=== PATIENT | female | born 1995 | race Hispanic/Latino ===

== ENCOUNTER → 2024-09-18 | Outpatient (REF) | LOC: M EMP 07:56 | PROVIDERS: ATTEND Family Medicine | DX: Z11.52 Encounter for screening for COVID-19 (principal) ==

== ENCOUNTER → 2024-09-20 | Outpatient (REF) | LOC: M EMP 08:01 | PROVIDERS: ATTEND Family Medicine | DX: Z11.52 Encounter for screening for COVID-19 (principal) ==

== ENCOUNTER 2024-11-30 19:24 | Emergency (ER) | payer SELFPAY ==
[~2024-11-30] VITALS: Ht 170.2 cm; Wt 94.8 kg
[2024-11-30 20:34] LABS: KETONE, URINE AUTO RFX NEGATIVE (NEGATIVE); LEUKOCYTE ESTERASE UR AUTO RFX NEGATIVE (NEGATIVE); MUCUS, URINE RFX MODERATE (NEGATIVE); NITRITE, URINE AUTO RFX NEGATIVE (NEGATIVE); RBC, URINE AUTO RFX 0 /HPF (0-3); SQUAM EPITHELIAL CELL UR AURFX 3 /HPF (0-6); WBC, URINE AUTO RFX 2 /HPF (0-3)
[2024-11-30 20:44] LABS: BASO % 0.6 % (0.0-1.0); EOS # 0.1 10^3/uL (0.0-0.5); EOS % 1.5 % (0.0-3.0); HEMATOCRIT 42.5 % (36.0-47.0); HEMOGLOBIN 14.3 g/dl (12.0-15.5); LYMPH # 2.8 10^3/uL (1.5-5.0); MEAN CORPUSCULAR HEMOGLOBIN 29.6 pg (27.0-33.0); MEAN CORPUSCULAR HGB CONC 33.6 g/dl (32.0-36.5); MONO # 0.7 10^3/uL (0.0-0.8); MONO % 10.5 % (2.0-8.0); NEUTROPHILS % 45.2 % (36.0-66.0); PLATELET COUNT, AUTOMATED 365 10^3/uL (150-450); RED BLOOD COUNT 4.83 10^6/uL (4.00-5.40); WHITE BLOOD COUNT 6.6 10^3/uL (4.0-10.0)
[2024-11-30 21:16] LABS: BLOOD UREA NITROGEN 9 MG/DL (9-23); CALCIUM LEVEL 9.2 MG/DL (8.5-10.1); CARBON DIOXIDE LEVEL 26 MMOL/L (20-31); CHLORIDE LEVEL 109 MMOL/L (98-107); CREATININE FOR GFR 0.58 MG/DL (0.55-1.30); GLOMERULAR FILTRATION RATE > 60.0 (>60); GLUCOSE, FASTING 88 MG/DL (60-100); SODIUM LEVEL 140 MMOL/L (136-145)
[2024-11-30 21:30] LABS: HCG, SERUM QUANTITATIVE 1904.2 MIU/ML (<4.2)
[2024-11-30 23:46] VITALS: BP 137/88; TEMP 98.8; O2SAT 99
[2024-12-01] MEDS ORDERED: METR-265 PO (00:48)
== END 2024-12-01 01:00 | disposition home or self-care (01) ==
LOC: M ED 19:24
DX: O20.0 Threatened abortion (principal); O23.591 Infection of other part of genital tract in pregnancy, first trimester; Z79.899 Other long term (current) drug therapy; Z3A.01 Less than 8 weeks gestation of pregnancy

== ENCOUNTER → 2025-01-29 | Outpatient (CLI) | payer MEDICAID, OTHER ==
[~2025-01-29] MED LIST: METR-265 PO
[2025-01-29 19:52] LABS: HEMOGLOBIN 13.6 g/dl (12.0-15.5); MEAN CORPUSCULAR HEMOGLOBIN 30.2 pg (27.0-33.0); MEAN CORPUSCULAR HGB CONC 33.2 g/dl (32.0-36.5); MEAN CORPUSCULAR VOLUME 90.9 fl (80.0-96.0); PLATELET COUNT, AUTOMATED 316 10^3/uL (150-450); RED BLOOD COUNT 4.51 10^6/uL (4.00-5.40)
[2025-01-29 20:50] LABS: HIV 1&2 SCREEN NEGATIVE (NEGATIVE)
[2025-01-29 20:58] LABS: HEPATITIS C VIRUS ABY INDEX 0.06 INDEX (<0.8)
== END ==
LOC: M PLALAB 15:05
PROVIDERS: ATTEND Advanced Practice Midwife
DX: Z34.81 Encounter for supervision of other normal pregnancy, first trimester (principal)

== ENCOUNTER → 2025-01-29 | Outpatient (REF) | payer MEDICAID, OTHER | LOC: M PLALAB 14:32 | PROVIDERS: ATTEND Advanced Practice Midwife | DX: Z34.81 Encounter for supervision of other normal pregnancy, first trimester (principal) ==

== ENCOUNTER → 2025-01-31 | Outpatient (REF) | LOC: M EMP 10:27 | PROVIDERS: ATTEND Family Medicine | DX: Z11.52 Encounter for screening for COVID-19 (principal) ==

== ENCOUNTER 2025-02-16 07:42 | Emergency (ER) | payer OTHER ==
[~2025-02-16] VITALS: Ht 167.6 cm; Wt 90.4 kg
[2025-02-16] MEDS ORDERED: ONDA-282 (08:02)
[2025-02-16 09:38] LABS: BASO % 0.3 % (0.0-1.0); EOS # 0.3 10^3/uL (0.0-0.5); EOS % 4.4 % (0.0-3.0); HEMATOCRIT 38.3 % (36.0-47.0); HEMOGLOBIN 13.1 g/dl (12.0-15.5); LYMPH # 0.9 10^3/uL (1.5-5.0); LYMPH % 14.6 % (24.0-44.0); MEAN CORPUSCULAR HGB CONC 34.2 g/dl (32.0-36.5); MEAN CORPUSCULAR VOLUME 87.8 fl (80.0-96.0); MONO # 0.8 10^3/uL (0.0-0.8); MONO % 13.6 % (2.0-8.0); NEUTROPHILS # 4.1 10^3/uL (1.5-8.5); NEUTROPHILS % 66.6 % (36.0-66.0); PLATELET COUNT, AUTOMATED 284 10^3/uL (150-450); RED BLOOD COUNT 4.36 10^6/uL (4.00-5.40); WHITE BLOOD COUNT 6.2 10^3/uL (4.0-10.0)
[2025-02-16] MEDS: NS (Normal Saline) 0.9% 1,000 ML IV ONE (09:42)
[2025-02-16 09:55] LABS: KETONE, URINE AUTO RFX TRACE mg/dL (NEGATIVE); LEUKOCYTE ESTERASE UR AUTO RFX NEGATIVE (NEGATIVE); MUCUS, URINE RFX LARGE (NEGATIVE); NITRITE, URINE AUTO RFX NEGATIVE (NEGATIVE); RBC, URINE AUTO RFX 1 /HPF (0-3); SQUAM EPITHELIAL CELL UR AURFX 3 /HPF (0-6); WBC, URINE AUTO RFX 3 /HPF (0-3)
[2025-02-16 10:34] LABS: ALBUMIN 3.2 G/DL (3.2-5.2); ALKALINE PHOSPHATASE 46 U/L (35-104); ALT/SGPT 26 U/L (7.0-40); AST/SGOT 20 U/L (<34); BILIRUBIN,DIRECT 0.1 MG/DL (<0.4); BILIRUBIN,TOTAL 0.5 MG/DL (0.3-1.2); BLOOD UREA NITROGEN < 5 MG/DL (9-23); CALCIUM LEVEL 9.3 MG/DL (8.5-10.1); CARBON DIOXIDE LEVEL 21 MMOL/L (20-31); CHLORIDE LEVEL 109 MMOL/L (98-107); CREATININE FOR GFR 0.42 MG/DL (0.55-1.30); GLOMERULAR FILTRATION RATE > 60.0 (>60); GLUCOSE, FASTING 78 MG/DL (60-100); SODIUM LEVEL 139 MMOL/L (136-145); TOTAL PROTEIN 7.1 G/DL (5.7-8.2)
[2025-02-16] MEDS ORDERED: VENTAER INH (11:41)
[2025-02-16 12:26] VITALS: BP 138/82; TEMP 97.9; O2SAT 100
== END 2025-02-16 12:32 | disposition home or self-care (01) ==
LOC: M ED 07:42
DX: O99.512 Diseases of the respiratory system complicating pregnancy, second trimester (principal); J21.1 Acute bronchiolitis due to human metapneumovirus; O26.892 Other specified pregnancy related conditions, second trimester; K42.9 Umbilical hernia without obstruction or gangrene; Z3A.15 15 weeks gestation of pregnancy; Z79.52 Long term (current) use of systemic steroids; Z79.83 Long term (current) use of bisphosphonates

== ENCOUNTER → 2025-02-27 | Outpatient (CLI) | payer OTHER ==
[~2025-02-27] MED LIST changes: +ONDA-282; +VENTAER INH
[2025-02-27 15:19] LABS: Trichomonas vaginalis (AMP) NOT DETECTED (NEGATIVE)
[2025-02-27 15:43] LABS: GC DNA AMPLIFICATION NEGATIVE (NEGATIVE)
== END ==
LOC: M PLALAB 10:07
PROVIDERS: ATTEND Obstetrics & Gynecology
DX: Z34.81 Encounter for supervision of other normal pregnancy, first trimester (principal)

== ENCOUNTER → 2025-03-22 | Outpatient (CLI) | payer OTHER, SELFPAY | LOC: M WHC 13:33 | PROVIDERS: ATTEND Obstetrics & Gynecology | DX: Z34.92 Encounter for supervision of normal pregnancy, unspecified, second trimester (principal); Z3A.20 20 weeks gestation of pregnancy ==

== ENCOUNTER → 2025-05-23 | Outpatient (CLI) | payer OTHER | LOC: M WHC 09:37 | PROVIDERS: ATTEND Advanced Practice Midwife | DX: Z34.82 Encounter for supervision of other normal pregnancy, second trimester (principal); Z3A.30 30 weeks gestation of pregnancy ==

== ENCOUNTER → 2025-07-18 | Outpatient (REF) | payer MEDICAID | LOC: M PLALAB 09:27 | PROVIDERS: ATTEND Nurse Practitioner Family | DX: N89.8 Other specified noninflammatory disorders of vagina (principal); Z3A.36 36 weeks gestation of pregnancy; R39.9 Unspecified symptoms and signs involving the genitourinary system ==

== ENCOUNTER 2025-08-03 11:05 | Inpatient (IN) | payer MEDICAID, OTHER ==
[~2025-08-03] VITALS: Ht 167.6 cm; Wt 95.4 kg
[2025-08-03 11:27] VITALS: BP 129/74
[2025-08-03] MEDS ORDERED: ACET-897 PO (12:16)
[2025-08-03] MEDS ORDERED: TUMS500C PO (12:16)
[2025-08-03] MEDS ORDERED: PRENTAB9 PO (12:16)
[2025-08-03 12:18] LABS: PLATELET COUNT, AUTOMATED 239 10^3/uL (150-450)
[2025-08-03] MEDS ORDERED: TRANEXAMIC ACID INJection 1,000 MG in NS 100 ML IV PRN (12:20)
[2025-08-03] MEDS ORDERED: HOME MED LIST COMPLETE! XX SCH (12:20)
[2025-08-03] MEDS ORDERED: CARBOPROST TROMETHAMINE 250 MCG/ML AMP IM PRN (12:20)
[2025-08-03] MEDS ORDERED: METHYLERGONOVINE MALEATE 0.2 MG/ML 1 ML VIAL IM PRN (12:20)
[2025-08-03] MEDS ORDERED: OXYTOCIN DRIP 30 UNITS in IV 1 EA IV PRN (12:20)
[2025-08-03] MEDS ORDERED: LIDOCAINE 1% MDV 20 ML VIAL INFIL PRN (12:20)
[2025-08-03] MEDS: miSOPROStol 50 MCG 1/2 TABLET PO SCH (12:44)
[2025-08-03 13:07] LABS: HIV 1&2 SCREEN NEGATIVE (NEGATIVE)
[2025-08-03 13:15] LABS: HEPATITIS C VIRUS ABY INDEX < 0.02 INDEX (<0.8)
[2025-08-03] MEDS ORDERED: PEN G POT 3,000,000 UNIT/50 ML 3,000,000 UNIT in IV 1 EA IV SCH (16:20)
[2025-08-03] MEDS ORDERED: **PENDING PCN ENTRY XX SCH (21:00)
[2025-08-03 21:44] VITALS: BP 134/79
[2025-08-04] VITALS (29 sets, daily range): BP systolic 123–188; BP diastolic 69–95; O2SAT 97–99
[2025-08-04] MEDS ORDERED: diphenhydrAMINE 50 MG/ML VIAL IV PRN ×2 (04:45→05:50)
[2025-08-04] MEDS ORDERED: LR 500 ML IV PRN ×2 (04:45→05:50)
[2025-08-04] MEDS ORDERED: EPIDURAL/PCA KEYS XX PRN ×2 (04:45→05:50)
[2025-08-04] MEDS ORDERED: NALOXONE INJ 0.4 MG/1 ML VIAL IV PRN ×2 (04:45→05:50)
[2025-08-04] MEDS: LACTATED RINGER'S 1000 ML IV STA (04:52)
[2025-08-04] MEDS: PENICILLIN G POTASSIUM 5 MU IV 5 MU in DEXTROSE 5% (D5W) MINI-BAG PLU 100 ML IV STA ×2 (04:53→08:29)
[2025-08-04] MEDS: ONDANSETRON 4MG 2ML VIAL IV PRN ×2 (05:42→14:30)
[2025-08-04] MEDS ORDERED: ONDANSETRON 4MG 2ML VIAL IV PRN (05:50)
[2025-08-04] MEDS ORDERED: FENTANYL/ROPIVACAINE/NACL BAG 100 ML EPIDURAL SCH (05:50)
[2025-08-04] MEDS: LR 1,000 ML IV SCH ×2 (06:38→08:45)
[2025-08-04] MEDS: FENTANYL/ROPIVACAINE/NACL BAG 100 ML EPIDURAL SCH (06:38)
[2025-08-04] MEDS ORDERED: RHOGAM 300MCG (1500IU) INJ IM SCH (07:55)
[2025-08-04] MEDS ORDERED: ACETAMINOPHEN 325 MG TAB PO PRN (07:55)
[2025-08-04] MEDS ORDERED: ANUSOL HC CREAM 30 GM TOP PRN (07:55)
[2025-08-04] MEDS ORDERED: METHYLERGONOVINE MALEATE 0.2 MG TAB PO PRN (07:55)
[2025-08-04] MEDS: OXYTOCIN DRIP 30 UNITS in IV 1 EA IV SCH (08:33)
[2025-08-04] MEDS ORDERED: PEN G POT 3,000,000 UNIT/50 ML 3,000,000 UNIT in IV 1 EA IV SCH (09:00)
[2025-08-04] MEDS: PRENATAL VITAMINS CHEWABLE TABLET PO SCH (09:00)
[2025-08-04] MEDS: METHYLERGONOVINE MALEATE 0.2 MG/ML 1 ML VIAL IM STA (10:26)
[2025-08-04 11:19] LABS: PLATELET COUNT, AUTOMATED 206 10^3/uL (150-450)
[2025-08-04] MEDS: DIBUCAINE 1% OINTMENT 30 GM TOP PRN (12:35)
[2025-08-04] MEDS: ACETAMINOPHEN 500 MG TAB PO PRN (12:36)
[2025-08-04] MEDS: DOCUSATE SODIUM 100 MG CAPSULE PO PRN (12:36)
[2025-08-04] MEDS: CALCIUM CARBONATE 500 MG CHEW U/D PO PRN (12:51)
[2025-08-04] MEDS: IBUPROFEN 800 MG TAB PO PRN (15:11)
[2025-08-05 06:00] VITALS: BP 121/56; O2SAT 99
[2025-08-05 08:37] LABS: PLATELET COUNT, AUTOMATED 162 10^3/uL (150-450)
[2025-08-05 11:01] VITALS: BP 121/56; TEMP 97.6; O2SAT 99
[2025-08-05 18:00] VITALS: BP 144/79; O2SAT 99
[2025-08-06 06:00] VITALS: BP 117/78; O2SAT 99
[2025-08-06] MEDS: IBUPROFEN 600 MG TAB PO PRN (08:52)
[2025-08-06] MEDS: MEASLES,MUMPS,RUBELLA VACCINE INJ (MMR-II) SC.IMMUN ONE (09:00)
[2025-08-06] MEDS ORDERED: IBUP80TA PO (11:40)
== END 2025-08-06 14:35 | disposition home or self-care (01) | DRG 560 ==
LOC: M LDI 11:05 → M OBS 08-04 12:15
PROVIDERS: ADMIT Obstetrics & Gynecology; ATTEND Obstetrics & Gynecology
PROC: 10E0XZZ Delivery of Products of Conception, External Approach (ICD-10-PCS; principal; 2025-08-04)
DX: O80 Encounter for full-term uncomplicated delivery (principal); Z37.0 Single live birth; Z3A.39 39 weeks gestation of pregnancy

== ENCOUNTER → 2025-10-08 | Outpatient (REF) | payer OTHER, MEDICAID ==
[~2025-10-08] MED LIST changes: +ACET-897 PO; +IBUP80TA PO; +PRENTAB9 PO; +TUMS500C PO
[2025-10-08 15:20] LABS: BASO # 0.0 10^3/uL (0.0-0.2); BASO % 0.7 % (0.0-1.0); EOS # 0.3 10^3/uL (0.0-0.5); EOS % 5.3 % (0.0-3.0); LYMPH # 2.2 10^3/uL (1.5-5.0); LYMPH % 40.5 % (24.0-44.0); MONO # 0.6 10^3/uL (0.0-0.8); MONO % 10.0 % (2.0-8.0); NEUTROPHILS # 2.4 10^3/uL (1.5-8.5); NEUTROPHILS % 43.3 % (36.0-66.0); PLATELET COUNT, AUTOMATED 378 10^3/uL (150-450)
[2025-10-08 15:28] LABS: ALT/SGPT 28 U/L (7.0-40); AST/SGOT 19 U/L (<34); CALCIUM LEVEL 9.5 MG/DL (8.5-10.1); CARBON DIOXIDE LEVEL 27 MMOL/L (20-31); CHLORIDE LEVEL 104 MMOL/L (98-107); CHOLESTEROL LEVEL 155 MG/DL (<200); CHOLESTEROL RISK RATIO 3.05 (<5); CREATININE FOR GFR 0.72 MG/DL (0.55-1.30); GLOMERULAR FILTRATION RATE > 90.0 (>60); LDL CHOLESTEROL 88.7 MG/DL (<100); NON-HDL-C 104.3 MG/DL; POTASSIUM SERUM 4.3 MMOL/L (3.5-5.1); SODIUM LEVEL 142 MMOL/L (136-145); TRIGLYCERIDES LEVEL 78 MG/DL (<150)
[2025-10-08 15:37] LABS: ESTIMATED AVERAGE GLUCOSE 100.0 MG/DL (60-110)
== END ==
LOC: M LAB REF 14:42
PROVIDERS: ATTEND Student in an Organized Health Care Education/Training Program
DX: E66.3 Overweight (principal); Z68.29 Body mass index [BMI] 29.0-29.9, adult